=== PATIENT | male | born 1980 | race Caucasian/White ===

== ENCOUNTER 2016-08-14 19:44 | Emergency (ER) | payer BC ==
[~2016-08-14] VITALS: Ht 180.3 cm; Wt 106.0 kg
[~2016-08-14 19:44] MED LIST: CYCL-36 PO; DICL75 PO; NAPR-576 PO
[2016-08-14 19:46] VITALS: BP 156/93; PULSE 85; RESP 16; TEMP 97.9; O2SAT 98
[2016-08-14] MEDS ORDERED: CEPH-460 PO (20:51)
[2016-08-14] MEDS ORDERED: BACT800T5 PO (20:51)
--- NOTE | 2016-08-14 20:54 | PD ---
HPI Chief Complaint: Skin Problem Time Seen by Provider: 20:51 Travel History International Travel<30 days: No Contact w/Intl Traveler<30days: No Traveled to known affect area: No History of Present Illness HPI 36-year-old white male presents to emergency Department with complaints of a tender swollen area to his left saenz over last 1-2 days. He is concerned that he may been bitten by an insect. The areas become red, tender and swollen. Symptoms are mild. No fever chills. Up-to-date with immunizations. PFSH Past Medical History Medical History: Denies Significant Hx Tetanus Vaccination: < 5 Years Past Surgical History Other Surgery: Yes (R CARPAL TUNNEL) Social History Alcohol Use: Yes (ONCE A WEEK) Tobacco Use: Yes (1 PPD) Substance Use: No Allergies-Medications (Allergen,Severity, Reaction): Coded Allergies: No Known Allergies (Unverified , 09/22/15) Reported Meds & Prescriptions Reported Meds & Active Scripts Active Bactrim DS (Sulfamethoxazole-Trimethoprim) 800-160 Mg Tab 1 Tab PO BID Keflex (Cephalexin) 500 Mg Cap 500 Mg PO Q6H Naproxen 500 Mg Tab 500 Mg PO Q12HR PRN Flexeril (Cyclobenzaprine HCl) 10 Mg Tab 10 Mg PO TID Diclofenac Sodium Dr (Diclofenac Sod) 75 Mg Tab 75 Mg PO BID PRN Review of Systems Except as stated in HPI: all other systems reviewed are Neg Physical Exam Narrative GENERAL: This is a well-nourished, well-developed patient, in no apparent distress. SKIN: No rashes, ecchymoses or lesions. Warm and dry. HEAD: Atraumatic. Normocephalic. EYES: PERRL, EOMI, no discharge or injection. No scleral icterus. EARS: Clear NOSE: Nasal turbinates appear normal. THROAT: Mucosa pink and moist. Airway patent. NECK: Trachea midline. supple, moves head freely. LUNGS: Clear to auscultation. CV: Regular in rhythm. ABDOMEN: Soft nontender. EXT: No clubbing cyanosis or edema. Patient has a 1.5 cm tender erythematous macular area to the left pretibial region. There is no fluctuance or pointing. Tender to touch. No discharge. Data Data Last Documented VS Vital Signs Date Time Temp Pulse Resp B/P Pulse Ox O2 Delivery O2 Flow Rate FiO2 08/14/16 19:46 97.9 85 16 156/93 98 Room Air Orders Cephalexin (Keflex) (08/14/16 21:00) Sulfamet-Trimeth Ds 800-160 Mg (Bactrim (08/14/16 21:00) MDM Medical Decision Making Medical Screen Exam Complete: Yes Emergency Medical Condition: Yes Medical Record Reviewed: Yes Differential Diagnosis MDM: High Differential diagnoses: Abscess, folliculitis, cellulitis, lymphangitis, abrasion, contact dermatitis Narrative Course This is folliculitis Patient given Keflex 500 and Bactrim DS by mouth Patient Instructions: General Instructions Departure Forms: Tests/Procedures, Work Release Special Instructions: No work 08/15/16 Additional Instructions: Rest. Elevation. keep clean and dry. Warm compresses. Daily wound care with soap, water and Neosporin. Three Advil every 6 hours. Keflex and Bactrim DS Follow-up with a primary care doctor in one week. Return to the ER for any problems. Med/Other Pt SpecificInfo: Prescription(s) given, Wound Care Scripts Sulfamethoxazole-Trimethoprim (Bactrim DS)800-160 Mg Tab1 Tab PO BID #14 TAB Prov:Angela Sosa DO 08/14/16 Cephalexin (Keflex)500 Mg [id number] Mg PO Q6H #28 CAP Prov:Angela Sosa DO 08/14/16 Disposition: 01 DISCHARGE HOME Condition: Stable Jey Chen Aug 14, 2016 20:54
[2016-08-14] MEDS ORDERED: CEPHALEXIN MONOHYDRATE 500 MG CAP PO ONE (21:00)
[2016-08-14] MEDS ORDERED: SULFAMETHOXAZOLE-TRIMETHOPRIM DS 800-160 MG TAB PO ONE (21:00)
== END 2016-08-14 21:13 | disposition home or self-care (01) ==
LOC: NEPB 19:44
DX: L73.9 Follicular disorder, unspecified (principal); F17.210 Nicotine dependence, cigarettes, uncomplicated
CPT/HCPCS: 99282

== ENCOUNTER 2017-04-05 16:19 | Emergency (ER) | payer OTHER, BC ==
[~2017-04-05] VITALS: Ht 180.3 cm; Wt 120.0 kg
[~2017-04-05 16:19] MED LIST changes: +BACT800T5 PO; +CEPH-460 PO
[2017-04-05 16:22] VITALS: BP 174/97; PULSE 79; RESP 13; TEMP 98.5; O2SAT 99
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
[2017-04-05] MEDS ORDERED: IBUP1TAB7 PO (17:33)
[2017-04-05] MEDS ORDERED: ROBA500T PO (17:33)
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
[2017-04-05] MEDS ORDERED: METHOCARBAMOL 500 MG TAB PO ONE (17:45)
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
== END 2017-04-05 18:10 | disposition home or self-care (01) ==
LOC: NEPK 16:19
DX: S49.91XA Unspecified injury of right shoulder and upper arm, initial encounter (principal); S89.91XA Unspecified injury of right lower leg, initial encounter; S16.1XXA Strain of muscle, fascia and tendon at neck level, initial encounter; R51 Headache; F17.200 Nicotine dependence, unspecified, uncomplicated; V43.52XA Car driver injured in collision with other type car in traffic accident, initial encounter
CPT/HCPCS: 73030; 73564; 99284

== ENCOUNTER 2017-09-17 16:54 | Observation (INO) | payer BC ==
[~2017-09-17 16:54] MED LIST changes: -BACT800T5 PO; -CEPH-460 PO; -CYCL-36 PO; -DICL75 PO; +IBUP1TAB7 PO; -NAPR-576 PO; +ROBA500T PO
[2017-09-17 17:10] VITALS: BP 148/86; PULSE 74; RESP 18; TEMP 98.6; O2SAT 100
--- NOTE | 2017-09-17 18:40 | RADRPT ---
EXAM DATE/TIME: 09/17/2017 18:31 [facility] COMPARISON: No previous studies available for comparison. INDICATIONS : Cephalgia. RADIATION DOSE: 56.35 CTDIvol (mGy) MEDICAL HISTORY : Hypertension. SURGICAL HISTORY : None. ENCOUNTER: Initial ACUITY: 1 day PAIN SCALE: 5/10 LOCATION: cranial TECHNIQUE: Multiple contiguous axial images were obtained of the head. Using automated exposure control and adj ustment of the mA and/or kV according to patient size, radiation dose was kept as low as reasonably a chievable to obtain optimal diagnostic quality images. DICOM format image data is available electro nically for review and comparison. FINDINGS: CEREBRUM: The ventricles are normal for age. No evidence of midline shift, mass lesion, hemorrhage or acute in farction. No extra-axial fluid collections are seen. POSTERIOR FOSSA: The cerebellum and brainstem are intact. The 4th ventricle is midline. The cerebellopontine angle i s unremarkable. EXTRACRANIAL: The visualized portion of the orbits is intact. SKULL: The calvaria is intact. No evidence of skull fracture. CONCLUSION: Negative noncontrast CT Fortino Win MD on September 17, 2017 at 18:37 Board Certified Radiologist. This report was verified electronically.
[2017-09-17 21:15] VITALS: BP 166/99; PULSE 64; RESP 16; O2SAT 96
[2017-09-17] MEDS ORDERED: LISI10TA3 PO (21:20)
[2017-09-17] MEDS ORDERED: SODIUM CHLOR 0.9% 1000 ML INJ 1,000 ML IV SCH (21:26)
[2017-09-17] MEDS ORDERED: KETOROLAC TROMETHAMINE 30 MG/ML (IVP) VIAL IV PUSH ONE (21:30)
[2017-09-17] MEDS ORDERED: SODIUM CHLORIDE 0.9% FLUSH 10 ML FLUSH IV FLUSH PRN (21:30)
[2017-09-17] MEDS ORDERED: METOCLOPRAMIDE HCL SYRUP 10 MG/10 ML UDC PO ONE (21:30)
--- NOTE | 2017-09-17 21:30 | PD ---
HPI Chief Complaint: Headache Time Seen by Provider: 21:20 Travel History International Travel<30 days: No Contact w/Intl Traveler<30days: No History of Present Illness HPI 37-year-old male here for evaluation of posterior headache. The headache started 4 days ago. Onset gradual. Pain described as throbbing. He is taking Excedrin, BC powder, ibuprofen with only minimal relief of symptoms. Headache seems to improve at times and becomes worse at times. He has photophobia and phonophobia. No motor deficits or visual changes. No fevers or chills. No recent trauma. Pain is currently 8 out of 10. ON LICENSE OF [facility] Past Medical History Diminished Hearing: No Headaches: Yes Hypertension: Yes Immunizations Current: Yes Migraines: Yes Tetanus Vaccination: Unknown Influenza Vaccination: No Past Surgical History Other Surgery: Yes (R CARPAL TUNNEL) Social History Alcohol Use: Yes (ONCE A WEEK) Tobacco Use: Yes (1/2 PPD) Substance Use: No Allergies-Medications (Allergen,Severity, Reaction): Coded Allergies: No Known Allergies (Unverified , 04/05/17) Reported Meds & Prescriptions Reported Meds & Active Scripts Active Flexeril (Cyclobenzaprine HCl) 10 Mg Tab 10 Mg PO TID Naproxen 500 Mg Tab 500 Mg PO BID 14 Days Reported Lisinopril 10 Mg Tab 10 Mg PO DAILY Review of Systems Except as stated in HPI: all other systems reviewed are Neg Physical Exam Narrative GENERAL: Well-developed, well-nourished, comfortable, no apparent distress. SKIN: Focused skin assessment warm/dry. HEAD: Atraumatic. Normocephalic. EYES: Pupils equal, round, 3 mm, reactive to light. EOMI. No scleral icterus. No injection or drainage. ENT: No nasal bleeding or discharge. Mucous membranes pink and moist. NECK: Trachea midline. No JVD. No nuchal rigidity. CARDIOVASCULAR: Regular rate and rhythm. RESPIRATORY: No accessory muscle use. Clear to auscultation. Breath sounds equal bilaterally. MUSCULOSKELETAL: No obvious deformities. No clubbing. No cyanosis. No edema. NEUROLOGICAL: Awake and alert. No obvious cranial nerve deficits. Motor grossly within normal limits. Normal speech. PSYCHIATRIC: Appropriate mood and affect; insight and judgment normal. Data Data Last Documented VS Vital Signs Date Time Temp Pulse Resp B/P (MAP) Pulse Ox O2 Delivery O2 Flow Rate FiO2 09/17/17 23:29 18 98 Room Air 09/17/17 21:15 64 09/17/17 17:[address] Brain W/O Iv Contrast(Rout) (09/17/17 ) Complete Blood Count With Diff (09/17/17 21:26) Comprehensive Metabolic Panel (09/17/17 21:26) Prothrombin Time / Inr (Pt) (09/17/17 21:26) Act Partial Throm Time (Ptt) (09/17/17 21:26) Iv Access Insert/Monitor (09/17/17 21:26) Ecg Monitoring (09/17/17 21:26) Oximetry (09/17/17 21:26) Sodium Chlor 0.9% 1000 Ml Inj (Ns 1000 M (09/17/17 21:26) Sodium Chloride 0.9% Flush (Ns Flush) (09/17/17 21:30) Metoclopramide Liq (Reglan Liq) (09/17/17 21:30) Ketorolac Inj (Toradol Inj) (09/17/17 21:30) Metoclopramide Inj (Reglan Inj) (09/17/17 22:06) Metoclopramide Inj (Reglan Inj) (09/17/17 22:15) Morphine Inj (Morphine Inj) (09/17/17 23:15) Csf Cell Count + Differential (09/17/17 23:27) Glucose, Csf (09/17/17 23:27) Total Protein, Csf (09/17/17 23:27) Csf Culture And Gram Stain (09/17/17 23:27) Sodium Chlor 0.9% 1000 Ml Inj (Ns 1000 M (09/17/17 23:30) Csf Cell Count + Differential (09/17/17 23:30) Labs Laboratory Tests Test 09/17/17 21:55 09/17/17 23:30 White Blood Count 7.1 TH/MM3 Red Blood Count 4.58 MIL/MM3 Hemoglobin 14.6 GM/DL Hematocrit 41.5 % Mean Corpuscular Volume 90.6 FL Mean Corpuscular Hemoglobin 31.8 PG Mean Corpuscular Hemoglobin Concent 35.1 % Red Cell Distribution Width 13.0 % Platelet Count 226 TH/MM3 Mean Platelet Volume 7.9 FL Neutrophils (%) (Auto) 53.0 % Lymphocytes (%) (Auto) 38.0 % Monocytes (%) (Auto) 5.9 % Eosinophils (%) (Auto) 1.9 % Basophils (%) (Auto) 1.2 % Neutrophils # (Auto) 3.8 TH/MM3 Lymphocytes # (Auto) 2.7 TH/MM3 Monocytes # (Auto) 0.4 TH/MM3 Eosinophils # (Auto) 0.1 TH/MM3 Basophils # (Auto) 0.1 TH/MM3 CBC Comment DIFF FINAL Differential Comment Prothrombin Time 10.2 SEC Prothromb Time International Ratio 1.0 RATIO Activated Partial Thromboplast Time 30.6 SEC Blood Urea Nitrogen 17 MG/DL Creatinine 1.14 MG/DL Random Glucose 102 MG/DL Total Protein 7.6 GM/DL Albumin 4.0 GM/DL Calcium Level 9.0 MG/DL Alkaline Phosphatase 56 U/L Aspartate Amino Transf (AST/SGOT) 19 U/L Alanine Aminotransferase (ALT/SGPT) 26 U/L Total Bilirubin 0.2 MG/DL Sodium Level 139 MEQ/L Potassium Level 3.8 MEQ/L Chloride Level 106 MEQ/L Carbon Dioxide Level 26.3 MEQ/L Anion Gap 7 MEQ/L Estimat Glomerular Filtration Rate 72 ML/MIN CSF Volume (Tube 1) 1.0 ML CSF Supernatant Color (tube 1) CLEAR CSF Gross Blood (Tube 1) TRACE CSF WBC (Tube 1) 23 /MM3 CSF RBC (Tube 1) 60 /MM3 CSF Volume (Tube 2) 1.0 ML CSF Supernatant Color (tube 2) CLEAR CSF Gross Blood (Tube 2) 0 CSF Volume (Tube 3) 1.0 ML CSF Supernatant Color (tube 3) CLEAR CSF Gross Blood (Tube 3) 0 CSF Volume (Tube 4) 1.2 ML CSF Supernatant Color (tube 4) CLEAR CSF Gross Blood (Tube 4) 0 CSF WBC (Tube 4) 9 /MM3 CSF RBC (Tube 4) 0 /MM3 CSF Neutrophils 2 % CSF Lymphocytes 78 % CSF Monocytes 20 % CSF Glucose 60 MG/DL CSF Total Protein 36.0 MG/DL [facility] Medical Decision Making Medical Screen Exam Complete: Yes Emergency Medical Condition: Yes Medical Record Reviewed: Yes Differential Diagnosis Tension headache, cluster headache, migraine headache, intracranial abnormality , cervical neuralgia, SAH/meningitis/encephalitis less likely Narrative Course Vital signs reviewed. CBC is unremarkable. CMP is unremarkable. Coags are within normal limits. CT head read as negative noncontrast head CT. The patient was given IV Reglan and IV Toradol as well as a liter normal saline IV. He reports that his headache improved from 9 out of 10 to 3 out of 10, he still has a headache with photophobia. There is no nuchal rigidity on exam and he is afebrile. I explained to him that the next procedure would be an LP to rule out subarachnoid hemorrhage. He was amenable to this plan, an LP was performed by me at the bedside. LP results show 23 WBCs and 60 RBCs in the first tube with 0 RBCs in the fourth tube with clear supernatant color. No xanthochromia noted. WBC count in the fourth tube is 9. Lymphocyte percent in the first to be 78%, and 95% in the fourth tube. Patient was made aware of all findings. He is sleeping comfortably, however when he sits up he does have a slight headache. He did lay flat for over an hour after the LP. There is no nuchal rigidity on exam. Given slight lymphocytosis on the LP, this raises the possibility for aseptic meningitis. He does report having had a cold/upper respiratory symptoms about a week to 2 weeks ago. He will be admitted for overnight observation and reevaluation in the morning. Case discussed with hospitalist Dr. Reeves who will admit the patient to her service. Procedures Procedure Narrative Lumbar puncture: LUMBAR PUNCTURE: The patient was placed in the seated position and forward flexion. The lumbar area of the back was prepped with Betadine and sterilely draped. The L3 -- L4 interspace was infiltrated with 1% lidocaine plain. Number 24 gauge LP needle was placed in the interspace. Opening pressure deferred. Number 6 milliliters of clear CSF were obtained. Patient tolerated procedure well. Diagnosis Primary Impression: Headache Qualified Codes: R51 - Headache Additional Impression: R/O Aseptic Meningitis Referrals: Primary Care Physician 3 days Additional Instructions: Follow-up with your primary care physician this week. Return to the emergency department for worsening symptoms or any other concerns. Scripts Cyclobenzaprine (Flexeril) 10 Mg Tab 10 MG PO TID for Muscle Spasm, #15 TAB 0 Refills Prov: Az Pemberton MD 09/18/17 Naproxen (Naproxen) 500 Mg Tab 500 MG PO BID for 14 Days, #28 TAB 0 Refills Prov: Az Pemberton MD 09/18/17 Disposition: 01 DISCHARGE HOME Condition: Stable Az Pemberton MD Sep 17, 2017 21:30
[2017-09-17 22:04] LABS: AUTOMATED NEUTROPHIL # 3.8 TH/MM3 (1.8-7.7); BASOPHIL # 0.1 TH/MM3 (0-0.2); BASOPHIL % 1.2 % (0.0-2.0); EOSINOPHIL # 0.1 TH/MM3 (0-0.4); EOSINOPHIL % 1.9 % (0.0-4.0); HEMATOCRIT 41.5 % (39.0-51.0); HEMOGLOBIN 14.6 GM/DL (13.0-17.0); LYMPHOCYTE # 2.7 TH/MM3 (1.0-4.8); MEAN CELL VOLUME 90.6 FL (80.0-100.0); MEAN CORPUSCULAR HEMOGLOBIN 31.8 PG (27.0-34.0); MEAN CORPUSCULAR HGB CONC 35.1 % (32.0-36.0); MEAN PLATELET VOLUME 7.9 FL (7.0-11.0); MONO % 5.9 % (0.0-8.0); MONOCYTE # 0.4 TH/MM3 (0-0.9); PLATELET COUNT 226 TH/MM3 (150-450); RED BLOOD COUNT 4.58 MIL/MM3 (4.50-5.90); WHITE BLOOD COUNT 7.1 TH/MM3 (4.0-11.0)
[2017-09-17] MEDS ORDERED: METOCLOPRAMIDE HCL 10 MG/2 ML VIAL ONE (22:06)
[2017-09-17] MEDS ORDERED: METOCLOPRAMIDE HCL 10 MG/2 ML VIAL IV PUSH ONE (22:15)
[2017-09-17 22:16] LABS: PROTHROMBIN TIME - PATIENT 10.2 SEC (9.8-11.6)
[2017-09-17 22:36] LABS: AST (GOT) 19 U/L (15-37); BICARBONATE 26.3 MEQ/L (21.0-32.0); BLOOD UREA NITROGEN 17 MG/DL (7-18); CHLORIDE 106 MEQ/L (98-107); CREATININE 1.14 MG/DL (0.60-1.30); GLOMERULAR FILTRATION RATE 72 ML/MIN (>89); GLUCOSE,RANDOM 102 MG/DL (74-106); SODIUM (NA) 139 MEQ/L (136-145)
[2017-09-17 22:38] LABS: ALKALINE PHOSPHATASE 56 U/L (45-117); ALT (GPT) 26 U/L (12-78); TOTAL BILIRUBIN ADULT 0.2 MG/DL (0.2-1.0); TOTAL PROTEIN 7.6 GM/DL (6.4-8.2)
[2017-09-17] MEDS ORDERED: MORPHINE SULFATE 2 MG/ML SYRINGE IV PUSH ONE (23:15)
[2017-09-17 23:29] VITALS: RESP 18; O2SAT 98
[2017-09-17] MEDS ORDERED: SODIUM CHLOR 0.9% 1000 ML INJ 1,000 ML IV ONE (23:30)
[2017-09-18 00:49] LABS: RBC TUBE #1 60 /MM3; SUPERNATE COLOR TUBE #1 CLEAR (CLEAR); WBC TUBE #1 23 /MM3 (0-10)
[2017-09-18 00:50] LABS: RBC TUBE #4 0 /MM3; WBC TUBE #4 9 /MM3 (0-10)
[2017-09-18] MEDS ORDERED: NAPR500T2 PO (01:05)
[2017-09-18] MEDS ORDERED: CYCL10TA PO (01:05)
[2017-09-18 01:19] LABS: CSF LYMPHOCYTES 95 %; CSF MONOCYTES 4 %; CSF NEUTROPHILS 1 %
[2017-09-18 01:22] LABS: CSF LYMPHOCYTES 78 %; CSF MONOCYTES 20 %; CSF NEUTROPHILS 2 %
[2017-09-18] MEDS ORDERED: GADODIAMIDE PF 287 MG/ML 5 ML VIAL (for RAD MRI) IVCONTRAST ONE (02:03)
[2017-09-18] MEDS ORDERED: ACETAMINOPHEN 325 MG TAB PO PRN (02:15)
[2017-09-18] MEDS ORDERED: ONDANSETRON HCL 4 MG/2 ML VIAL IVP PRN (02:15)
[2017-09-18] MEDS ORDERED: SODIUM CHLORIDE 0.9% FLUSH 10 ML FLUSH IV FLUSH PRN (02:15)
[2017-09-18] MEDS ORDERED: NALOXONE HCL 0.4 MG/ML AMP IV PUSH PRN (02:15)
[2017-09-18 03:01] VITALS: BP 102/61; PULSE 75; RESP 16; O2SAT 98
[2017-09-18 04:29] VITALS: BP 122/72; PULSE 71; RESP 18; TEMP 98.2; O2SAT 99
[2017-09-18 08:17] VITALS: BP 139/89; PULSE 63; RESP 16; TEMP 97.8; O2SAT 99
[2017-09-18] MEDS: SODIUM CHLORIDE 0.9% FLUSH 10 ML FLUSH IV FLUSH SCH ×2 (10:02→20:35)
[2017-09-18] MEDS: MORPHINE SULFATE 2 MG/ML SYRINGE IV PUSH PRN ×2 (10:02→17:10)
[2017-09-18 11:06] VITALS: BP 141/80; PULSE 63; RESP 16; TEMP 97.9; O2SAT 99
[2017-09-18 15:08] VITALS: BP 142/83; PULSE 67; RESP 16; TEMP 98.3; O2SAT 99
--- NOTE | 2017-09-18 17:13 | HHI.HP ---
HPI Service [facility] Hospitalists Primary Care Physician Jordan Mai M.D. Admission Diagnosis Intractable headache, rule out aseptic meningitis Diagnoses: Chief Complaint: Headache Travel History International Travel<30 Days: No Contact w/Intl Traveler <30 Da: No Traveled to Known Affected Are: No History of Present Illness This is a 37-year-old male with past medical history significant for hypertension, GERD who presents to [facility] complaining of a five- day history of headache. The patient states that the headache starts in the back of the neck in the region of the cervical spine and then radiates up to the head becoming generalized. Patient describes the pain as 10/10 in intensity on its peak intensity, associated with nausea but no vomiting, no visual disturbances. Patient states that today pain was slightly improved down to 3-4/10. Patient denies fevers, denies chills, denies diarrhea, the patient complains of mild chest pain which is substernal and nonradiating. The patient attributes this to being working over his chest fixed in the pool. The patient was in the emergency department and underwent evaluation with a negative contrast head CT. Lumbar puncture was ordered and it showed increased CSF WBC of 23 and increased CSF RBC of 60. The patient currently still complains of headache with pain on the lower side of the neck. The patient states that approximately 2 weeks ago he had cold-like symptoms but these already resolved. Review of Systems As per HPI, other systems reviewed by me and negative. Past Family Social History Past Medical History Hypertension GERD Past Surgical History Carpal tunnel surgery. Right knee arthroscopic surgery. Reported Medications Reported Meds & Active Scripts Active Flexeril (Cyclobenzaprine HCl) 10 Mg Tab 10 Mg PO TID Naproxen 500 Mg Tab 500 Mg PO BID 14 Days Reported Lisinopril 10 Mg Tab 10 Mg PO DAILY Allergies: Coded Allergies: No Known Allergies (Unverified Allergy, Unknown, 09/18/17) Active Ordered Medications Current Medications Medications (Trade) Dose Ordered Sig/Ambika Route Start Time Stop Time Status Last Admin (NS Flush) 2 ml UNSCH PRN IV FLUSH 09/18/17 02:15 (NS Flush) 2 ml BID IV FLUSH 09/18/17 09:00 09/18/17 10:02 (Tylenol) 650 mg Q4H PRN PO 09/18/17 02:15 (Zofran Inj) 4 mg Q6H PRN IVP 09/18/17 02:15 (Narcan Inj) 0.4 mg UNSCH PRN IV PUSH 09/18/17 02:15 (Morphine Inj) 2 mg Q3H PRN IV PUSH 09/18/17 02:15 09/18/17 10:02 Family History Patient's grandfather had diabetes mellitus. Social History Patient smokes half a pack per day. Drinks hard liquor 1 times per week. Denies any illicit drug use. Physical Exam Vital Signs Vital Signs Date Time Temp Pulse Resp B/P (MAP) Pulse Ox O2 Delivery O2 Flow Rate FiO2 09/18/17 15:08 98.3 67 16 142/83 (102) 99 09/18/17 11:06 97.9 63 16 141/80 (100) 99 09/18/17 08:17 97.8 63 16 139/89 (106) 99 09/18/17 04:29 98.2 71 18 122/72 (89) 99 09/18/17 03:01 75 16 102/61 (75) 98 Room Air 09/17/17 23:29 18 98 Room Air 09/17/17 21:15 64 16 166/99 (121) 96 Room Air 09/17/17 17:10 98.6 74 18 148/86 (106) 100 Physical Exam GENERAL: This is a well-nourished, well-developed patient, in no apparent distress. SKIN: No rashes, ecchymoses or lesions. Cool and dry. HEAD: Atraumatic. Normocephalic. No temporal or scalp tenderness. EYES: Pupils equal round and reactive. Extraocular motions intact. No scleral icterus. No injection or drainage. ENT: Nose without bleeding, purulent drainage or septal hematoma. Throat without erythema, tonsillar hypertrophy or exudate. Uvula midline. Airway patent. NECK: Trachea midline. No JVD or lymphadenopathy. Supple, nontender, no meningeal signs. CARDIOVASCULAR: Regular rate and rhythm without murmurs, gallops, or rubs. RESPIRATORY: Clear to auscultation. Breath sounds equal bilaterally. No wheezes , rales, or rhonchi. GASTROINTESTINAL: Abdomen soft, non-tender, nondistended. No hepato-splenomegaly , or palpable masses. No guarding. MUSCULOSKELETAL: Extremities without clubbing, cyanosis, or edema. No joint tenderness, effusion, or edema noted. No calf tenderness. Negative Homans sign bilaterally. NEUROLOGICAL: Awake and alert. Cranial nerves II through XII intact. Motor and sensory grossly within normal limits. Five out of 5 muscle strength in all muscle groups. Normal speech. Laboratory Laboratory Tests Test 09/17/17 21:55 09/17/17 23:30 White Blood Count 7.1 Red Blood Count 4.58 Hemoglobin 14.6 Hematocrit 41.5 Mean Corpuscular Volume 90.6 Mean Corpuscular Hemoglobin 31.8 Mean Corpuscular Hemoglobin Concent 35.1 Red Cell Distribution Width 13.0 Platelet Count 226 Mean Platelet Volume 7.9 Neutrophils (%) (Auto) 53.0 Lymphocytes (%) (Auto) 38.0 Monocytes (%) (Auto) 5.9 Eosinophils (%) (Auto) 1.9 Basophils (%) (Auto) 1.2 Neutrophils # (Auto) 3.8 Lymphocytes # (Auto) 2.7 Monocytes # (Auto) 0.4 Eosinophils # (Auto) 0.1 Basophils # (Auto) 0.1 CBC Comment DIFF FINAL Differential Comment Prothrombin Time 10.2 Prothromb Time International Ratio 1.0 Activated Partial Thromboplast Time 30.6 Blood Urea Nitrogen 17 Creatinine 1.14 Random Glucose 102 Total Protein 7.6 Albumin 4.0 Calcium Level 9.0 Alkaline Phosphatase 56 Aspartate Amino Transf (AST/SGOT) 19 Alanine Aminotransferase (ALT/SGPT) 26 Total Bilirubin 0.2 Sodium Level 139 Potassium Level 3.8 Chloride Level 106 Carbon Dioxide Level 26.3 Anion Gap 7 Estimat Glomerular Filtration Rate 72 CSF Volume (Tube 1) 1.0 CSF Supernatant Color (tube 1) CLEAR CSF Gross Blood (Tube 1) TRACE CSF WBC (Tube 1) 23 CSF RBC (Tube 1) 60 CSF Volume (Tube 2) 1.0 CSF Supernatant Color (tube 2) CLEAR CSF Gross Blood (Tube 2) 0 CSF Volume (Tube 3) 1.0 CSF Supernatant Color (tube 3) CLEAR CSF Gross Blood (Tube 3) 0 CSF Volume (Tube 4) 1.2 CSF Supernatant Color (tube 4) CLEAR CSF Gross Blood (Tube 4) 0 CSF WBC (Tube 4) 9 CSF RBC (Tube 4) 0 CSF Neutrophils 2 CSF Lymphocytes 78 CSF Monocytes 20 CSF Glucose 60 CSF Total Protein 36.0 Date/Time Source Procedure Growth Status 09/17/17 23:30 Cerebral Spinal Fluid Lumbar Puncture Gram Stain - Final Resulted 09/17/17 23:30 Cerebral Spinal Fluid Lumbar Puncture CSF Culture - Preliminary NO GROWTH IN 24 HOURS. Resulted Result Diagram: [id number] Imaging Last Impressions Head CT 09/17/17 0000 Signed Impressions: Service Date/Time: Sunday, September 17, 2017 18:31 - CONCLUSION: Negative noncontrast CT Fortino Win MD Head CT reviewed by me. Rachna VTE Risk Assessment Caprini VTE Risk Assessment: No/Low Risk (score <= 1) Caprini Risk Assessment Model Point Value = 1 Point Value = 2 Point Value = 3 Point Value = 5 Age 41-60 Minor surgery BMI > 25 kg/m2 Swollen legs Varicose veins or History of unexplained or recurrent spontaneous Oral contraceptives or hormone replacement Sepsis (< 1 month) Serious lung disease, including pneumonia (< 1 month) Abnormal pulmonary function Acute myocardial infarction Congestive heart failure (< 1 month) History of inflammatory bowel disease Medical patient at bed rest Age 61-74 Arthroscopic surgery Major open surgery (> 45 min) Laparoscopic surgery (> 45 min) Malignancy Confined to bed (> 72 hours) Immobilizing plaster cast Central venous access Age >= 75 History of VTE Family history of VTE Factor V Leiden Prothrombin [id number] Lupus anticoagulant Anticardiolipin antibodies Elevated serum homocysteine Heparin-induced thrombocytopenia Other congenital or acquired thrombophilia Stroke (< 1 month) Elective arthroplasty Hip, pelvis, or leg fracture Acute spinal cord injury (< 1 month) Prophylaxis Regimen Total Risk Factor Score Risk Level Prophylaxis Regimen 0-1 Low Early ambulation 2 Moderate Order ONE of the following: *Sequential Compression Device (SCD) *Heparin 5000 units SQ BID 3-4 Higher Order ONE of the following medications: *Heparin 5000 units SQ TID *Enoxaparin/Lovenox 40 mg SQ daily (WT < 150 kg, CrCl > 30 mL/min) *Enoxaparin/Lovenox 30 mg SQ daily (WT < 150 kg, CrCl > 10-29 mL/min) *Enoxaparin/Lovenox 30 mg SQ BID (WT < 150 kg, CrCl > 30 mL/min) AND/OR *Sequential Compression Device (SCD) 5 or more Highest Order ONE of the following medications: *Heparin 5000 units SQ TID (Preferred with Epidurals) *Enoxaparin/Lovenox 40 mg SQ daily (WT < 150 kg, CrCl > 30 mL/min) *Enoxaparin/Lovenox 30 mg SQ daily (WT < 150 kg, CrCl > 10-29 mL/min) *Enoxaparin/Lovenox 30 mg SQ BID (WT < 150 kg, CrCl > 30 mL/min) AND *Sequential Compression Device (SCD) Assessment and Plan Problem List: (1) Headache ICD Code: R51 - Headache Status: Acute (2) HTN (hypertension) ICD Code: I10 - Essential (primary) hypertension Assessment and Plan Place the patient outpatient observation. The patient still having some headache and photophobia. Lumbar puncture with increased WBC of 23 and RBCs of 60 with lymphocyte predominance raising the suspicion of aseptic/viral meningitis. Continue pain control with IV morphine as needed. Continue home antihypertensive medication We will consult neurology. Check HIV, syphilis and HSV 2 Further recommendations as per neurology. SCDs for DVT prophylaxis PPI for GI prophylaxis. Avoid NSAIDs since this can predispose to aseptic meningitis. Code Status Full code Discussed Condition With Patient, at bedside. Problem Qualifiers (1) Headache: Qualified Codes: R51 - Headache Janes Dunne MD Sep 18, 2017 17:13
[2017-09-18 20:32] VITALS: BP 141/88; PULSE 70; RESP 16; TEMP 98.4; O2SAT 99
--- NOTE | 2017-09-18 20:32 | RADRPT ---
EXAM DATE/TIME: 09/18/2017 20:05 [facility] COMPARISON: No previous studies available for comparison. INDICATIONS : Chest pain. MEDICAL HISTORY : Hypertension. SURGICAL HISTORY : None. ENCOUNTER: Initial ACUITY: 2 days PAIN SCORE: 1/10 LOCATION: Bilateral chest FINDINGS: PA and lateral views of the chest demonstrate the lungs to be symmetrically aerated without evidence of mass, infiltrate or effusion. The cardiomediastinal contours are unremarkable. Osseous structure s are intact. CONCLUSION: No acute disease. Jey Bone MD on September 18, 2017 at 20:28 Board Certified Radiologist. This report was verified electronically.
[2017-09-18 20:54] LABS: AUTOMATED NEUTROPHIL # 2.5 TH/MM3 (1.8-7.7); BASOPHIL # 0.1 TH/MM3 (0-0.2); EOSINOPHIL # 0.1 TH/MM3 (0-0.4); EOSINOPHIL % 2.4 % (0.0-4.0); HEMATOCRIT 38.7 % (39.0-51.0); HEMOGLOBIN 13.4 GM/DL (13.0-17.0); LYMPH % 43.3 % (9.0-44.0); LYMPHOCYTE # 2.3 TH/MM3 (1.0-4.8); MEAN CELL VOLUME 90.3 FL (80.0-100.0); MEAN CORPUSCULAR HEMOGLOBIN 31.2 PG (27.0-34.0); MEAN CORPUSCULAR HGB CONC 34.6 % (32.0-36.0); MEAN PLATELET VOLUME 8.6 FL (7.0-11.0); MONO % 6.5 % (0.0-8.0); MONOCYTE # 0.3 TH/MM3 (0-0.9); NEUT % 46.8 % (16.0-70.0); PLATELET COUNT 218 TH/MM3 (150-450); RED BLOOD COUNT 4.29 MIL/MM3 (4.50-5.90); RED CELL DISTRIBUTION WIDTH 12.8 % (11.6-17.2); WHITE BLOOD COUNT 5.3 TH/MM3 (4.0-11.0)
[2017-09-18 21:15] LABS: TROPONIN I LESS THAN 0.02 NG/ML (0.02-0.05)
[2017-09-19 00:16] VITALS: BP 136/84; PULSE 59; RESP 16; TEMP 97.9; O2SAT 99
[2017-09-19 04:02] VITALS: BP 127/84; PULSE 64; RESP 16; TEMP 97.8; O2SAT 100
[2017-09-19 05:15] LABS: AUTOMATED NEUTROPHIL # 3.3 TH/MM3 (1.8-7.7); BASOPHIL # 0.1 TH/MM3 (0-0.2); EOSINOPHIL # 0.1 TH/MM3 (0-0.4); EOSINOPHIL % 2.2 % (0.0-4.0); HEMATOCRIT 40.8 % (39.0-51.0); HEMOGLOBIN 13.9 GM/DL (13.0-17.0); LYMPH % 38.4 % (9.0-44.0); LYMPHOCYTE # 2.5 TH/MM3 (1.0-4.8); MEAN CELL VOLUME 91.5 FL (80.0-100.0); MEAN CORPUSCULAR HEMOGLOBIN 31.3 PG (27.0-34.0); MEAN CORPUSCULAR HGB CONC 34.2 % (32.0-36.0); MONO % 6.2 % (0.0-8.0); MONOCYTE # 0.4 TH/MM3 (0-0.9); NEUT % 52.2 % (16.0-70.0); PLATELET COUNT 219 TH/MM3 (150-450); RED BLOOD COUNT 4.46 MIL/MM3 (4.50-5.90); RED CELL DISTRIBUTION WIDTH 13.2 % (11.6-17.2); WHITE BLOOD COUNT 6.4 TH/MM3 (4.0-11.0)
[2017-09-19 05:46] LABS: ALBUMIN 3.4 GM/DL (3.4-5.0); ALKALINE PHOSPHATASE 50 U/L (45-117); ALT (GPT) 22 U/L (12-78); AST (GOT) 21 U/L (15-37); BICARBONATE 28.2 MEQ/L (21.0-32.0); BLOOD UREA NITROGEN 17 MG/DL (7-18); CALCIUM 8.4 MG/DL (8.5-10.1); CHLORIDE 107 MEQ/L (98-107); CREATININE 1.01 MG/DL (0.60-1.30); GLOMERULAR FILTRATION RATE 82 ML/MIN (>89); GLUCOSE,RANDOM 82 MG/DL (74-106); SODIUM (NA) 141 MEQ/L (136-145); TOTAL BILIRUBIN ADULT 0.4 MG/DL (0.2-1.0); TOTAL PROTEIN 6.7 GM/DL (6.4-8.2); TROPONIN I LESS THAN 0.02 NG/ML (0.02-0.05)
[2017-09-19 07:59] VITALS: BP 121/82; PULSE 65; RESP 20; TEMP 97.8; O2SAT 98
[2017-09-19] MEDS: SODIUM CHLORIDE 0.9% FLUSH 10 ML FLUSH IV FLUSH SCH ×2 (08:02→21:37)
[2017-09-19 09:42] LABS: RPR SCREEN FOR REFLEX NON-REACTIVE (NON-REACTVE)
[2017-09-19] MEDS: MORPHINE SULFATE 2 MG/ML SYRINGE IV PUSH PRN (10:26)
[2017-09-19 11:27] VITALS: BP 142/71; PULSE 70; RESP 16; TEMP 98; O2SAT 100
[2017-09-19] MEDS ORDERED: MORPHINE SULFATE 2 MG/ML SYRINGE IV PUSH PRN (12:15)
[2017-09-19] MEDS ORDERED: oxyCODONE/ACETAMINOPHEN 5 MG/325 MG TAB PO PRN (12:15)
--- NOTE | 2017-09-19 15:48 | HHI.PR ---
Subjective Remarks Deferred entry. The patient was seen at 12 PM. Patient states that headache is improving but still present. Denies fevers or chills. Vital signs stable. Patient afebrile. Objective Vitals Vital Signs Date Time Temp Pulse Resp B/P (MAP) Pulse Ox O2 Delivery O2 Flow Rate FiO2 09/19/17 11:27 98.0 70 16 142/71 (94) 100 09/19/17 07:59 97.8 65 20 121/82 (95) 98 09/19/17 04:02 97.8 64 16 127/84 (98) 100 09/19/17 00:16 97.9 59 16 136/84 (101) 99 09/18/17 20:32 98.4 70 16 141/88 (105) 99 I/O 09/18/17 09/18/17 09/18/17 09/19/17 09/19/17 09/19/17 07:00 15:00 23:00 07:00 15:00 23:00 Intake Total 240 ml 200 ml Balance 240 ml 200 ml Intake Oral 240 ml 200 ml Result Diagram: 09/19/17 0333 09/19/17 0333 Imaging Last Impressions Chest X-Ray 09/18/17 0000 Signed Impressions: Service Date/Time: Monday, September 18, 2017 20:05 - CONCLUSION: No acute disease. Jey Bone MD Head CT 09/17/17 0000 Signed Impressions: Service Date/Time: Sunday, September 17, 2017 18:31 - CONCLUSION: Negative noncontrast CT Fortino Win MD Objective Remarks GENERAL: This is a well-nourished, well-developed patient, in no apparent distress. SKIN: No rashes, ecchymoses or lesions. Cool and dry. HEAD: Atraumatic. Normocephalic. No temporal or scalp tenderness. EYES: Pupils equal round and reactive. Extraocular motions intact. No scleral icterus. No injection or drainage. ENT: Nose without bleeding, purulent drainage or septal hematoma. Throat without erythema, tonsillar hypertrophy or exudate. Uvula midline. Airway patent. NECK: Trachea midline. No JVD or lymphadenopathy. Supple, nontender, no meningeal signs. CARDIOVASCULAR: Regular rate and rhythm without murmurs, gallops, or rubs. RESPIRATORY: Clear to auscultation. Breath sounds equal bilaterally. No wheezes , rales, or rhonchi. GASTROINTESTINAL: Abdomen soft, non-tender, nondistended. No hepato-splenomegaly , or palpable masses. No guarding. MUSCULOSKELETAL: Extremities without clubbing, cyanosis, or edema. No joint tenderness, effusion, or edema noted. No calf tenderness. Negative Homans sign bilaterally. NEUROLOGICAL: Awake and alert. Cranial nerves II through XII intact. Motor and sensory grossly within normal limits. Five out of 5 muscle strength in all muscle groups. Normal speech. Medications and IVs Current Medications Medications (Trade) Dose Ordered Sig/Ambika Route Start Time Stop Time Status Last Admin (NS Flush) 2 ml UNSCH PRN IV FLUSH 09/18/17 02:15 09/19/17 10:25 (NS Flush) 2 ml BID IV FLUSH 09/18/17 09:00 09/19/17 08:02 (Tylenol) 650 mg Q4H PRN PO 09/18/17 02:15 (Zofran Inj) 4 mg Q6H PRN IVP 09/18/17 02:15 (Narcan Inj) 0.4 mg UNSCH PRN IV PUSH 09/18/17 02:15 (Percocet 5-325 Mg) 1 tab Q4H PRN PO 09/19/17 12:15 (Percocet 5-325 Mg) 2 tab Q4H PRN PO 09/19/17 12:15 (Morphine Inj) 2 mg Q3H PRN IV PUSH 09/19/17 12:15 Urinary Catheter: No Vascular Central Line Catheter: No A/P Problem List: (1) Headache ICD Code: R51 - Headache Status: Acute (2) HTN (hypertension) ICD Code: I10 - Essential (primary) hypertension Assessment and Plan Status post lumbar puncture with CSF showing WBC of 23 RBC of 60 with lymphocyte predominance. CSF suspicious for aseptic meningitis. Discontinue IV morphine. I will start the patient on oral Percocet and IV morphine for breakthrough pain. Continue home antihypertensive medication Consult neurology HIV 1 and 2 antibody nonreactive. RPR nonreactive HSV-2 pending Further recommendations as per neurology. SCDs for DVT prophylaxis PPI for GI prophylaxis. Avoid NSAIDs since this can predispose to aseptic meningitis. SCD for DVT prophylaxis. Discharge Planning Pending neurology consultation. Problem Qualifiers (1) Headache: Qualified Codes: R51 - Headache Janes Dunne MD Sep 19, 2017 15:48
[2017-09-19 15:59] VITALS: BP 136/93; PULSE 74; RESP 20; TEMP 98.2; O2SAT 99
[2017-09-19 16:38] LABS: TROPONIN I LESS THAN 0.02 NG/ML (0.02-0.05)
--- NOTE | 2017-09-19 18:43 | EKG ---
Date Performed: 09/18/2017 Time Performed: 17:33:17 PTAGE: 37 years EKG: Sinus rhythm NORMAL ECG NO PREVIOUS TRACING DOCTOR: Prakash Keene Interpretating Date/Time 09/19/2017 18:41:26
--- NOTE | 2017-09-19 20:53 | MB ---
cc: Shahid Gutiérrez MD, PhD DATE: 09/19/2017 REASON FOR CONSULTATION: Possible meningitis. HISTORY OF PRESENT ILLNESS: Mr. Constantino is a very nice 37-year-old man who 5 days ago began having severe headaches also with neck pain with pain radiating down his neck and from the neck up to the head area. He denies fevers or chills. PAST MEDICAL HISTORY: GERD, hypertension, carpal tunnel surgery, right knee surgery. MEDICINES AT HOME: Flexeril and naproxen. NEUROLOGIC EXAMINATION: VITAL SIGNS: He has been afebrile since admission. Temperature 98.2 degrees, blood pressure 136/93, pulse 74, respirations 20. HIGH CORTICAL FUNCTIONS: Normal. Cranial nerves intact. The neck is supple with no meningismus. Motor exam are no focal deficits. Reflexes are symmetric. IMAGING: CT brain is normal. LABORATORY DATA: White count 6400, hemoglobin 13.9, hematocrit 40%, platelet count 219,000. Sodium is 141, potassium 4.4, chloride 107, CO2 is 28, the BUN is 17, creatinine 1.01, AST 21, ALT 22. PT 10.2, INR 1, APTT 30.6. CSF from lumbar puncture has 23 white cells, 60 RBCs. The differential of the white cells are 2% neutrophils, 78% lymphocytes, 20% monos. Protein 36 glucose is 60. HSV PCR pending. HIV nonreactive. RPR nonreactive. IMPRESSION: Headache. He does have a cerebral spinal fluid pleocytosis however, no fevers. This could be an aseptic meningitis, although with the lack of fever, rule out other causes. I would like to get an MRI of the brain also MR cervical spine, rule out cervicogenic headaches. The MRI would be helpful as well to be sure he does not have any type of epidermoid cyst that could cause a chemical Meningitis. ADDENDUM: Also follow up cerebral spinal fluid cultures. Shahid Gutiérrez MD, PhD VIJAYA/rt , 08:29 PM , 08:52 PM
[2017-09-19] MEDS: oxyCODONE/ACETAMINOPHEN 5 MG/325 MG TAB PO PRN (21:37)
--- NOTE | 2017-09-19 21:47 | RADRPT ---
EXAM DATE/TIME: 09/19/2017 20:51 [facility] COMPARISON: No previous studies available for comparison. INDICATIONS : Cervical spondylosis MEDICAL HISTORY : Hypertension. SURGICAL HISTORY : Right wrist sx, Knee sx. ENCOUNTER: Initial ACUITY: 1 week PAIN SCORE: 8/10 LOCATION: Bilateral cranial and neck region. TECHNIQUE: Multiplanar, multisequence MRI examination of the cervical spine was performed. FINDINGS: VERTEBRAE: Normal vertebral body height. Homogeneous marrow signal. ALIGNMENT: No evidence of subluxation. CORD: Normal configuration and signal. POST FOSSA: The cerebellar tonsils are normal in position. C2-C3: The thecal sac has a normal configuration. There is no evidence of disc herniation or spinal canal s tenosis. The neural foramina are patent bilaterally. C3-C4: The thecal sac has a normal configuration. There is no evidence of disc herniation or spinal canal s tenosis. The neural foramina are patent bilaterally. C4-C5: The thecal sac has a normal configuration. There is no evidence of disc herniation or spinal canal s tenosis. The neural foramina are patent bilaterally. C5-C6: The thecal sac has a normal configuration. There is no evidence of disc herniation or spinal canal s tenosis. The neural foramina are patent bilaterally. C6-C7: The thecal sac has a normal configuration. There is no evidence of disc herniation or spinal canal s tenosis. The neural foramina are patent bilaterally. C7-T1: The thecal sac has a normal configuration. There is no evidence of disc herniation or spinal canal s tenosis. The neural foramina are patent bilaterally. CONCLUSION: Unremarkable exam with no evidence of disc protrusion. The cervical cord is within no rmal limits. Fortino Win MD on September 19, 2017 at 21:42 Board Certified Radiologist. This report was verified electronically.
--- NOTE | 2017-09-19 21:49 | RADRPT ---
EXAM DATE/TIME: 09/19/2017 20:51 [facility] COMPARISON: CT BRAIN W/O CONTRAST, September 17, 2017, 18:31. INDICATIONS : Headaches for about one week. CONTRAST: 20 cc Omniscan (gadodiamide) IV MEDICAL HISTORY : Hypertension. SURGICAL HISTORY : Right wrist sx, Knee sx. ENCOUNTER: Initial ACUITY: 1 week PAIN SCORE: 8/10 LOCATION: Bilateral cranial TECHNIQUE: Multiplanar, multisequence MRI of the brain was performed both prior to and following the administrat ion of paramagnetic contrast. FINDINGS: CEREBRUM: The ventricles are normal for age. No evidence of midline shift, mass lesion, hemorrhage or acute in farction. No extraaxial fluid collections are seen. The pituitary gland and suprasellar cistern are normal in configuration. WHITE MATTER: No significant signal abnormalities are seen in the white matter. POSTERIOR FOSSA: The cerebellum and brainstem are intact. The 4th ventricle is midline. The cerebellopontine angle is unremarkable. The cerebellar tonsils are normal in position. DIFFUSION IMAGING: No focal areas of restricted diffusion are seen. No evidence of acute infarction. EXTRACRANIAL: The visualized portions of the orbits are unremarkable. There is mucosal thickening in the maxillary sinuses and right ethmoidal air cells. POST-CONTRAST: No abnormal areas of parenchymal or dural enhancement. No evidence of blood-brain barrier breakdown. CONCLUSION: 1. No evidence of hemorrhage, mass or infarction. 2. Mucosal thickening in the maxillary sinuses and right air cells. Fortino Win MD on September 19, 2017 at 21:44 Board Certified Radiologist. This report was verified electronically.
[2017-09-20 00:22] VITALS: BP 134/84; PULSE 62; RESP 16; TEMP 97.4; O2SAT 99
[2017-09-20 04:36] VITALS: BP 131/75; PULSE 58; RESP 16; TEMP 97.6; O2SAT 98
[2017-09-20 08:11] VITALS: BP 137/86; PULSE 66; RESP 20; TEMP 97.5; O2SAT 97
[2017-09-20 09:50] LABS: HSV 1,PCR Negative (Negative)
[2017-09-20] MEDS: oxyCODONE/ACETAMINOPHEN 5 MG/325 MG TAB PO PRN (09:56)
[2017-09-20] MEDS: SODIUM CHLORIDE 0.9% FLUSH 10 ML FLUSH IV FLUSH SCH (09:56)
[2017-09-20 12:12] VITALS: BP 133/87; PULSE 59; RESP 16; TEMP 97.6; O2SAT 98
--- NOTE | 2017-09-20 13:55 | HHI.DS ---
Discharge Summary Admission Date Sep 18, 2017 at 02:02 Discharge Date: Sep 20, 2017 Admitting Diagnosis Intractable headache, rule out aseptic meningitis (1) Headache ICD Code: R51 - Headache Status: Acute (2) HTN (hypertension) ICD Code: I10 - Essential (primary) hypertension Procedures Lumbar puncture Brief History - From Admission This is a 37-year-old male with past medical history significant for hypertension, GERD who presents to [facility] complaining of a five- day history of headache. The patient states that the headache starts in the back of the neck in the region of the cervical spine and then radiates up to the head becoming generalized. Patient describes the pain as 10/10 in intensity on its peak intensity, associated with nausea but no vomiting, no visual disturbances. Patient states that today pain was slightly improved down to 3-4/10. Patient denies fevers, denies chills, denies diarrhea, the patient complains of mild chest pain which is substernal and nonradiating. The patient attributes this to being working over his chest fixed in the pool. The patient was in the emergency department and underwent evaluation with a negative contrast head CT. Lumbar puncture was ordered and it showed increased CSF WBC of 23 and increased CSF RBC of 60. The patient currently still complains of headache with pain on the lower side of the neck. The patient states that approximately 2 weeks ago he had cold-like symptoms but these already resolved. CBC/BMP: 09/19/17 0333 09/19/17 0333 Significant Findings Laboratory Tests Test 09/17/17 21:55 09/17/17 23:30 09/18/17 19:50 09/18/17 23:30 Activated Partial Thromboplast Time 30.6 SEC (24.3-30.1) Estimat Glomerular Filtration Rate 72 ML/MIN (>89) CSF WBC (Tube 1) 23 /MM3 (0-10) CSF RBC (Tube 1) 60 /MM3 (NONE) Red Blood Count 4.29 MIL/MM3 (4.50-5.90) Hematocrit 38.7 % (39.0-51.0) Troponin I LESS THAN 0.02 NG/ML Test 09/19/17 03:33 09/19/17 15:35 09/20/17 06:42 Red Blood Count 4.46 MIL/MM3 (4.50-5.90) Calcium Level 8.4 MG/DL (8.5-10.1) Estimat Glomerular Filtration Rate 82 ML/MIN (>89) Troponin I LESS THAN 0.02 NG/ML LESS THAN 0.02 NG/ML Imaging Last Impressions Cervical Spine MRI 09/19/17 0000 Signed Impressions: Service Date/Time: September 20:51 - CONCLUSION: Unremarkable exam with no evidence of disc protrusion. The cervical cord is within normal limits. Fortino Win MD Brain MRI 09/19/17 0000 Signed Impressions: Service Date/Time: September 20:51 - CONCLUSION: 1. No evidence of hemorrhage, mass or infarction. 2. Mucosal thickening in the maxillary sinuses and right air cells. Fortino Win MD Chest X-Ray 09/18/17 0000 Signed Impressions: Service Date/Time: Monday, September 18, 2017 20:05 - CONCLUSION: No acute disease. Jey Bone MD Head CT 09/17/17 0000 Signed Impressions: Service Date/Time: Sunday, September 17, 2017 18:31 - CONCLUSION: Negative noncontrast CT Fortino Win MD PE at Discharge GENERAL: This is a well-nourished, well-developed patient, in no apparent distress. SKIN: No rashes, ecchymoses or lesions. Cool and dry. HEAD: Atraumatic. Normocephalic. No temporal or scalp tenderness. EYES: Pupils equal round and reactive. Extraocular motions intact. No scleral icterus. No injection or drainage. ENT: Nose without bleeding, purulent drainage or septal hematoma. Throat without erythema, tonsillar hypertrophy or exudate. Uvula midline. Airway patent. NECK: Trachea midline. No JVD or lymphadenopathy. Supple, nontender, no meningeal signs. CARDIOVASCULAR: Regular rate and rhythm without murmurs, gallops, or rubs. RESPIRATORY: Clear to auscultation. Breath sounds equal bilaterally. No wheezes , rales, or rhonchi. GASTROINTESTINAL: Abdomen soft, non-tender, nondistended. No hepato-splenomegaly , or palpable masses. No guarding. MUSCULOSKELETAL: Extremities without clubbing, cyanosis, or edema. No joint tenderness, effusion, or edema noted. No calf tenderness. Negative Homans sign bilaterally. NEUROLOGICAL: Awake and alert. Cranial nerves II through XII intact. Motor and sensory grossly within normal limits. Five out of 5 muscle strength in all muscle groups. Normal speech. Pt update on day of discharge Follow-up visit HTN, headache. Patient seen and examined today. Reports he is doing better. at the bedside. Patient states that he still has headaches that comes intermittently. Right now headache is rated as 2/10. Relieved with pain medications. Intermittent photophobia reported. States that he does not get dizzy when he gets up or walks around. He does not have increasing headaches getting up or walking around. Denies SOB/ dyspnea. Denies chest pain , palpitations, headaches, dizziness. Denies fevers, chills, n/v/d. Denies hematuria, dysuria. Hospital Course 37-year-old male with past medical history significant for hypertension, GERD who presents to [facility] complaining of a five-day history of headache that starts in the back of the neck in the region of the cervical spine and then radiates up to the head becoming generalized. Acute headache, possible septic meningitis. Lumbar puncture was done with increased WBC of 23 and RBC of 60 with lymphocyte predominance raising suspicion for aseptic/viral meningitis. Urology was consulted and recommends an MRI of the brain and cervical spine to rule out cervical is genic headaches.Brain MRI showed no evidence of hemorrhage, mass or infarction. Mucosal thickening the maxillary sinuses and right air cells. Cervical spine MRI unremarkable exam with no evidence of disc protrusion. Cervical cord is within normal limits. Infectious disease was also consulted for evaluation. RPR was nonreactive, HIV 1 and 2 antibody nonreactive. Per infectious disease patient is cleared for discharge does not think that this is infectious process. Patient has met maximal benefits of hospitalization. Clinically stable for discharge. Follow- up with neurology Dr. Gutiérrez in 3 weeks. Pt Condition on Discharge: Stable Discharge Disposition: Discharge Home Discharge Time: <= 30 minutes Discharge Instructions DIET: Follow Instructions for: Heart Healthy Diet Activities you can perform: Regular-No Restrictions Activities to Avoid: Driving for 24 hrs, Driving Follow up Referrals: Neurology - 1 Week with Shahid Gutiérrez MD PhD PCP Follow-up - 2-3 Days New Medications: Oxycodone HCl/Acetaminophen (Oxycodone-Acetaminophen 5-325) 5 Mg-325 Mg Tablet 1 TAB PO Q4-6H PRN for PAin, Headache, #20 TAB Continued Medications: Cyclobenzaprine (Flexeril) 10 Mg Tab 10 MG PO TID for Muscle Spasm, #15 TAB 0 Refills Lisinopril (Lisinopril) 10 Mg Tab 10 MG PO DAILY, #30 TAB 0 Refills Naproxen (Naproxen) 500 Mg Tab 500 MG PO BID for 14 Days, #28 TAB 0 Refills Krissy Díaz Sep 20, 2017 13:55
--- NOTE | 2017-09-20 13:55 | HHI.DCPOC ---
Discharge Care Plan Diagnosis: (1) HTN (hypertension) (2) Headache Additional Problems Pain Goals to Promote Your Health * To prevent worsening of your condition and complications * To maintain your health at the optimal level Directions to Meet Your Goals Take your medications as prescribed Follow your dietary instruction Follow activity as directed Keep your appointments as scheduled Take your immunizations and boosters as scheduled If your symptoms worsen call your PCP, if no PCP go to Urgent Care Center or Emergency Room Smoking is Dangerous to Your Health. Avoid second hand smoke Call the 24-hour hour crisis hotline for domestic abuse at Krissy Díaz Sep 20, 2017 13:55
--- NOTE | 2017-09-20 13:55 | HHI.PR ---
Subjective Remarks Follow-up visit HTN, headache. Patient seen and examined today. Reports he is doing better. at the bedside. Patient states that he still has headaches that comes intermittently. Right now headache is rated as 2/10. Relieved with pain medications. Intermittent photophobia reported. States that he does not get dizzy when he gets up or walks around. He does not have increasing headaches getting up or walking around. Denies SOB/ dyspnea. Denies chest pain , palpitations, headaches, dizziness. Denies fevers, chills, n/v/d. Denies hematuria, dysuria. Objective Vitals Vital Signs Date Time Temp Pulse Resp B/P (MAP) Pulse Ox O2 Delivery O2 Flow Rate FiO2 09/20/17 12:12 97.6 59 16 133/87 (102) 98 09/20/17 08:11 97.5 66 20 137/86 (103) 97 09/20/17 04:36 97.6 58 16 131/75 (93) 98 09/20/17 00:22 97.4 62 16 134/84 (101) 99 09/19/17 15:59 98.2 74 20 136/93 (107) 99 I/O 09/19/17 09/19/17 09/19/17 09/20/17 09/20/17 09/20/17 07:00 15:00 23:00 07:00 15:00 23:00 Intake Total 200 ml 720 ml Balance 200 ml 720 ml Intake Oral 200 ml 720 ml # Voids 1 Result Diagram: 09/19/17 0333 09/19/17 0333 Imaging Last Impressions Cervical Spine MRI 09/19/17 0000 Signed Impressions: Service Date/Time: September 20:51 - CONCLUSION: Unremarkable exam with no evidence of disc protrusion. The cervical cord is within normal limits. Fortino Win MD Brain MRI 09/19/17 0000 Signed Impressions: Service Date/Time: September 20:51 - CONCLUSION: 1. No evidence of hemorrhage, mass or infarction. 2. Mucosal thickening in the maxillary sinuses and right air cells. Fortino Win MD Chest X-Ray 09/18/17 0000 Signed Impressions: Service Date/Time: Monday, September 18, 2017 20:05 - CONCLUSION: No acute disease. Jey Bone MD Head CT 09/17/17 0000 Signed Impressions: Service Date/Time: Sunday, September 17, 2017 18:31 - CONCLUSION: Negative noncontrast CT Fortino Win MD Objective Remarks GENERAL: This is a well-nourished, well-developed patient, in no apparent distress. SKIN: Warm and dry HEENT: Normocephalic. Pupils equal round and reactive. Nose without bleeding. Airway patent. NECK: Trachea midline. No nuchal rigidity. CARDIOVASCULAR: Regular rate and rhythm without murmurs, gallops, or rubs. RESPIRATORY: Clear to auscultation. Breath sounds equal bilaterally. No wheezes , rales, or rhonchi. GASTROINTESTINAL: Abdomen soft, non-tender, nondistended. Bowel Sounds normoactive x4. MUSCULOSKELETAL: Extremities without clubbing, cyanosis, or edema. NEUROLOGICAL: Awake and alert. Oriented to time, place, person. No focal neuro deficit. Moves all extremities. Normal speech. A/P Problem List: (1) Headache ICD Code: R51 - Headache Status: Acute (2) HTN (hypertension) ICD Code: I10 - Essential (primary) hypertension Assessment and Plan 37-year-old male with past medical history significant for hypertension, GERD who presents to [facility] complaining of a five-day history of headache that starts in the back of the neck in the region of the cervical spine and then radiates up to the head becoming generalized. Headache, acute Possible aseptic meningitis -Lumbar puncture with increased WBC of 23 and RBC of 60 with lymphocyte predominance raising suspicion of aseptic/viral meningitis. -Neurology consulted recommends an MRI of the brain the cervical spine to rule out cervicogenic headaches. -Brain MRI showed no evidence of hemorrhage, mass or infarction. Mucosal thickening the maxillary sinuses and right air cells. -Cervical spine MRI unremarkable exam with no evidence of disc protrusion. Cervical cord is within normal limits. -Infectious disease was also consulted for further evaluation. RPR nonreactive, HSV pending, HIV 1 and 2 antibody nonreactive. -As per infectious disease patient is cleared to go home. --Plan to discharge home with follow-up with neurologist Dr. Gutiérrez DVT prop SCDs, ambulatory Discharge Planning Plan to discharge home today Problem Qualifiers (1) Headache: Qualified Codes: R51 - Headache GoodaloKrissy Dahl BREWMASTER Sep 20, 2017 13:55
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
[2017-09-20] MEDS ORDERED: OXYC1TAB63 PO (14:05)
== END 2017-09-20 16:59 | disposition home or self-care (01) ==
LOC: NEPD 16:54 → NEDA 09-18 02:02 → NEPFCDU 09-18 03:21
PROVIDERS: ADMIT Hospitalist; ATTEND Hospitalist
DX: R51 Headache (principal); I10 Essential (primary) hypertension; H53.149 Visual discomfort, unspecified; R07.9 Chest pain, unspecified; R11.0 Nausea; R09.89 Other specified symptoms and signs involving the circulatory and respiratory systems; K21.9 Gastro-esophageal reflux disease without esophagitis; M47.892 Other spondylosis, cervical region; F17.210 Nicotine dependence, cigarettes, uncomplicated; Z79.899 Other long term (current) drug therapy
CPT/HCPCS: 62270; 70450; 70553; 71046; 72141; 80053; 82550; 82945; 84157; 84484; 85025; 85610; 85730; 86592; 86703; 87070; 87205; 87529; 87801; 89051; 93005; 96361; 96374; 96375; 96376; 99285; A9579; G0378; J1885; J2270; J2765; J7030